=== PATIENT | female | born 1940 | race American Indian/Alaskan Native ===

== ENCOUNTER 2021-03-07 09:22 | Outpatient (CLI) | payer MEDICARE ==
--- NOTE | 2021-03-07 11:24 | Mammography Report ---
DEXA BONE DENSITY SCAN INDICATION / CLINICAL INFORMATION: MENOPAUSAL/POSTMENOPAUSAL. 81 years Female COMPARISON: 10/02/2018 LUMBAR SPINE, L1-L4: - Bone mineral density (BMD) = 0.953 g/cm2. - T-score = -1.8 - Z-score = 1.2 Change (%) since most recent prior (if available): None available. Left HIP, NECK : - Bone mineral density (BMD) = 0.576 g/cm2. - T-score = -2.6 - Z-score = -0.9 Change (%) since most recent prior (if available): 2.3% increase IMPRESSION: 1. WHO Classification: Osteoporosis. Fracture Risk: High. Note: 10-Year Fracture Risk (FRAX) not reported. This DEXA unit lacks FRAX functionality. BMD Reporting Guidelines (ISCD, 2015) BMD Reporting in Postmenopausal Women and in Men Age 50 and Older - T-scores are preferred. - The WHO densitometric classification is applicable. BMD Reporting in Females Prior to Menopause and in Males Younger Than Age 50 - Z-scores, not T-scores, are preferred. This is particularly important in children. - A Z-score of -2.0 or lower is defined as below the expected range for age, and a Z-score above -2.0 is within the expected range for age. - Osteoporosis cannot be diagnosed in men under age 50 on the basis of BMD alone. - The WHO diagnostic criteria may be applied to women in the menopausal transition. http://www.iscd.org/official-positions/0864-eosk-rkbqrpzy-positions-adult/ Signer Name: Alejandro Palomo MD Signed: 03/07/2021 11:19 AM Workstation Name: [id number]
== END 2021-03-07 09:23 | disposition home or self-care (01) ==
LOC: SPVWC 09:22
PROVIDERS: ATTEND Internal Medicine Hematology & Oncology
DX: C50.212 Malignant neoplasm of upper-inner quadrant of left female breast (principal); M81.0 Age-related osteoporosis without current pathological fracture
CPT/HCPCS: 77080